=== PATIENT | male | born 1935 | race Caucasian/White ===

== ENCOUNTER 2019-06-19 17:14 | Inpatient (IN) ==
[2019-06-19] MEDS ORDERED: Aspirin 81 MG TAB.CHEW PO STA (17:57)
[2019-06-19 18:48] LABS: Troponin I 16.22 ng/mL (< 0.04)
[2019-06-19] MEDS ORDERED: *HR* Heparin 5,000 UNIT/ML VIAL IVP PRN (19:15)
[2019-06-19] MEDS ORDERED: Heparin 25,000 UNIT/250 ML D5W 25,000 UNIT/250 ML IV.SOLN IVC SCH (19:15)
[2019-06-19] MEDS ORDERED: *HR* Heparin 5,000 UNIT/ML VIAL IVP ONE (19:15)
[2019-06-19 19:24] LABS: Basophils % 0.2 %; Eosinophils % 0.1 %; Hematocrit 44.1 % (37.5-50.1); Hemoglobin 14.4 g/dL (12.9-16.9); Immature Granulocytes % 0.3 % (0-4); Lymphocytes # 1.2 K/mcL (0.6-4.6); Lymphocytes % 12.6 %; Mean Corpuscular HGB Conc 32.7 g/dL (31.6-35.5); Mean Corpuscular Hemoglobin 33.5 pg (28.0-33.3); Mean Corpuscular Volume 102.6 fL (83.0-100.0); Monocytes # 0.8 K/mcL (0.0-1.3); Monocytes % 8.6 %; Neutrophils # 7.5 K/mcL (1.6-8.9); Platelet Count 341 K/mcL (140-400); Red Cell Distribution Width 13.9 % (11.5-14.5); Segmented Neutrophils % 78.2 %; White Blood Count 9.5 K/mcL (4.3-11.1)
[2019-06-19 19:36] LABS: INR 1.2; Prothrombin Time 13.6 Seconds (9.4-12.1)
[2019-06-19 19:38] LABS: Activated Partial Thrombo Time 32.9 Seconds (26.0-36.0)
[2019-06-19 19:46] LABS: Hematocrit 43.4 % (37.5-50.1); Hemoglobin 14.4 g/dL (12.9-16.9); Mean Corpuscular HGB Conc 33.2 g/dL (31.6-35.5); Mean Corpuscular Volume 102.4 fL (83.0-100.0); Mean Platelet Volume 9.7 fL (9.4-12.4); Platelet Count 340 K/mcL (140-400); Red Blood Count 4.24 M/mcL (4.19-5.50); White Blood Count 9.1 K/mcL (4.3-11.1)
[2019-06-19 19:52] LABS: BUN/Creatinine Ratio 17 (6-26); Blood Urea Nitrogen 18 mg/dL (8-23); Calcium 9.2 mg/dL (8.6-10.3); Carbon Dioxide 20 mEq/L (23-29); Chloride 104 mEq/L (98-107); Glucose 108 mg/dL (70-105); Osmolality,Calculated 282 (280-300); Potassium 4.2 mEq/L (3.5-5.1); Sodium 135 mEq/L (136-145); eGFR For African Americans > 60 (> 60); eGFR For Non-African Americans > 60 (> 60)
[2019-06-19 19:54] LABS: INR 1.2; Prothrombin Time 13.8 Seconds (9.4-12.1)
[2019-06-19 20:05] LABS: Chol/HDL Ratio 3.6 (0-4.9)
[2019-06-19 20:16] LABS: Estimated Average Glucose 137 mg/dl
[2019-06-19 20:41] LABS: Thyroid Stimulating Hormone 1.763 mcIU/mL (0.340-5.600)
[2019-06-19] MEDS: Gabapentin 400 MG CAPSULE PO SCH (22:21)
[2019-06-20] MEDS: *HR* Heparin 5,000 UNIT/ML VIAL IVP PRN ×2 (03:47→12:44)
[2019-06-20] MEDS ORDERED: Aspirin 81 MG TAB.CHEW PO SCH (09:00)
[2019-06-20] MEDS ORDERED: Perflutren Lipid Microsphere 1.3 ML in 0.9 % Sodium Chloride 8.7 ML IVP ONE (10:37)
[2019-06-20] MEDS ORDERED: Perflutren Lipid Microsphere 2 ML VIAL ONE (10:40)
[2019-06-20] MEDS: Isosorbide MONOnitrate (24 HR) 30 MG TAB.ER.24H PO SCH (11:25)
[2019-06-20] MEDS: Cholecalciferol (D-3) 1,000 UNIT (25MCG) TABLET PO SCH (11:25)
[2019-06-20] MEDS: Gabapentin 400 MG CAPSULE PO SCH ×3 (11:25→20:32)
[2019-06-20] MEDS: Furosemide 40 MG TABLET PO SCH (11:26)
[2019-06-20] MEDS: *HR* HYDROcodone/Acet 5/325 mg TABLET PO PRN ×2 (11:26→20:35)
[2019-06-20] MEDS: Carbamide Peroxide 150 DROP/15 ML BOTTLE BOTH EARS SCH (11:29)
[2019-06-20] MEDS: Hydroxyurea 500 MG CAPSULE PO SCH (11:47)
[2019-06-20] MEDS ORDERED: ISOVUE-370 200 ML INFUS..BTL ONE (12:42)
[2019-06-20] MEDS ORDERED: Nitroglycerin 1,000 MCG/10 ML VIAL IV ONE (12:42)
[2019-06-20] MEDS ORDERED: Heparin 1,000 UNITS/500 mL 500 ML ONE (12:42)
[2019-06-20] MEDS ORDERED: 0.9 % Sodium Chloride 1,000 ML ONE (12:42)
[2019-06-20] MEDS ORDERED: *HR* Heparin 10,000 UNIT/10 ML VIAL ONE (12:42)
[2019-06-20] MEDS ORDERED: *HR* Midazolam HCl 2 MG/2 ML VIAL ONE (13:21)
[2019-06-20] MEDS ORDERED: *HR* FentaNYL (PF) 100 MCG/2 ML VIAL ONE (13:21)
[2019-06-20] MEDS: *HR* Rivaroxaban 10 MG TABLET PO SCH (17:00)
[2019-06-21 01:57] LABS: Basophils % 0.3 %; Eosinophils % 0.1 %; Hematocrit 40.7 % (37.5-50.1); Hemoglobin 13.3 g/dL (12.9-16.9); Immature Granulocytes % 0.4 % (0-4); Lymphocytes # 1.3 K/mcL (0.6-4.6); Lymphocytes % 12.9 %; Mean Corpuscular HGB Conc 32.7 g/dL (31.6-35.5); Mean Corpuscular Hemoglobin 33.8 pg (28.0-33.3); Mean Corpuscular Volume 103.6 fL (83.0-100.0); Mean Platelet Volume 10.1 fL (9.4-12.4); Monocytes # 1.1 K/mcL (0.0-1.3); Monocytes % 10.6 %; Neutrophils # 7.8 K/mcL (1.6-8.9); Platelet Count 355 K/mcL (140-400); Red Blood Count 3.93 M/mcL (4.19-5.50); Red Cell Distribution Width 14.2 % (11.5-14.5); Segmented Neutrophils % 75.7 %; White Blood Count 10.3 K/mcL (4.3-11.1)
[2019-06-21 02:08] LABS: INR 2.6; Prothrombin Time 30.1 Seconds (9.4-12.1)
[2019-06-21 02:17] LABS: Calcium 8.9 mg/dL (8.6-10.3); Potassium 4.5 mEq/L (3.5-5.1)
[2019-06-21] MEDS: Gabapentin 400 MG CAPSULE PO SCH ×3 (07:46→21:37)
[2019-06-21] MEDS: Isosorbide MONOnitrate (24 HR) 30 MG TAB.ER.24H PO SCH (07:47)
[2019-06-21] MEDS: Furosemide 40 MG TABLET PO SCH (07:47)
[2019-06-21] MEDS: Cholecalciferol (D-3) 1,000 UNIT (25MCG) TABLET PO SCH (07:47)
[2019-06-21] MEDS: Acetaminophen 325 MG TABLET PO PRN ×2 (07:52→21:43)
[2019-06-21] MEDS: Carbamide Peroxide 150 DROP/15 ML BOTTLE BOTH EARS SCH (07:56)
[2019-06-21] MEDS ORDERED: 0.9 % Sodium Chloride 1,000 ML IVC SCH (09:00)
[2019-06-21] MEDS: *HR* HYDROcodone/Acet 5/325 mg TABLET PO PRN (14:39)
[2019-06-21] MEDS: *HR* Rivaroxaban 10 MG TABLET PO SCH (16:32)
[2019-06-21] MEDS ORDERED: Furosemide 20 MG/2 ML VIAL IVP STA (17:51)
[2019-06-21] MEDS ORDERED: Acetaminophen IV 500 MG/50 ML INFUS..BTL IVPB ONE (23:33)
[2019-06-22 03:39] LABS: Hematocrit 41.3 % (37.5-50.1); Hemoglobin 13.2 g/dL (12.9-16.9); Mean Corpuscular Hemoglobin 33.8 pg (28.0-33.3); Mean Corpuscular Volume 105.6 fL (83.0-100.0); Mean Platelet Volume 10.1 fL (9.4-12.4); Platelet Count 391 K/mcL (140-400); Red Blood Count 3.91 M/mcL (4.19-5.50); Red Cell Distribution Width 14.1 % (11.5-14.5); White Blood Count 11.1 K/mcL (4.3-11.1)
[2019-06-22 03:54] LABS: Calcium 9.1 mg/dL (8.6-10.3); Potassium 4.4 mEq/L (3.5-5.1)
[2019-06-22 08:07] LABS: Basophils % 0.3 %; Eosinophils % 0.1 %; Hematocrit 41.8 % (37.5-50.1); Hemoglobin 13.4 g/dL (12.9-16.9); Immature Granulocytes % 0.5 % (0-4); Lymphocytes # 1.5 K/mcL (0.6-4.6); Lymphocytes % 13.7 %; Mean Corpuscular HGB Conc 32.1 g/dL (31.6-35.5); Mean Corpuscular Hemoglobin 33.8 pg (28.0-33.3); Mean Corpuscular Volume 105.6 fL (83.0-100.0); Monocytes # 1.3 K/mcL (0.0-1.3); Monocytes % 11.6 %; Neutrophils # 8.1 K/mcL (1.6-8.9); Platelet Count 384 K/mcL (140-400); Red Blood Count 3.96 M/mcL (4.19-5.50); Red Cell Distribution Width 14.1 % (11.5-14.5); Segmented Neutrophils % 73.8 %; White Blood Count 10.9 K/mcL (4.3-11.1)
[2019-06-22] MEDS: Isosorbide MONOnitrate (24 HR) 30 MG TAB.ER.24H PO SCH (10:18)
[2019-06-22] MEDS: Gabapentin 400 MG CAPSULE PO SCH ×3 (10:19→19:43)
[2019-06-22] MEDS: Cholecalciferol (D-3) 1,000 UNIT (25MCG) TABLET PO SCH (10:20)
[2019-06-22] MEDS: Carbamide Peroxide 150 DROP/15 ML BOTTLE BOTH EARS SCH (10:22)
[2019-06-22] MEDS: Hydroxyurea 500 MG CAPSULE PO SCH (10:33)
[2019-06-22 10:57] LABS: INR 2.2; Prothrombin Time 25.5 Seconds (9.4-12.1)
[2019-06-22 13:56] LABS: Bilirubin,Urine Small (Negative); Blood,Urine Moderate (Negative); Clarity,Urine Clear (Clear); Color,Urine Dark Yellow (Yellow); Glucose,Urine (UA) Normal (Normal); Ketones,Urine Negative (Negative); Leukocyte Esterase,Urine Negative (Negative); Nitrite,Urine Negative (Negative); PH,Urine 5.5 pH Units (5.0-8.0); Protein,Urine 30 mg/dL (Neg-Trace); Specific Gravity,Urine 1.027 (1.010-1.025); Urobilinogen,Urine Normal (Normal)
[2019-06-22 14:03] LABS: Bacteria,Urine None Seen per hpf (None-Few); Hyaline Casts,Urine None Seen per lpf (None-Few); RBC,Urine 15-30 per hpf (0-3); Squamous Epithelial Cell,Urine Moderate per lpf (None-Few); WBC,Urine 0-3 per hpf (0-3)
[2019-06-22 15:59] LABS: Protein/Creatinine Ratio,Urine 0.28 mg/mg (0.00-0.20)
[2019-06-22] MEDS: *HR* Rivaroxaban 15 MG TABLET PO SCH (16:07)
[2019-06-22] MEDS ORDERED: Ipratropium/Albuterol Neb 3 ML IH PRN (17:46)
[2019-06-22] MEDS ORDERED: Piperacillin/Tazobactam 3.375 GM in 0.9 % Sodium Chloride Mini Bag 100 ML IVPB ONE (17:58)
[2019-06-22] MEDS ORDERED: Furosemide 40 MG/4 ML VIAL IVP ONE (18:17)
[2019-06-23] MEDS: Piperacillin/Tazobactam 3.375 GM in 0.9 % Sodium Chloride Mini Bag 100 ML IVPB SCH ×4 (00:35→23:21)
[2019-06-23] MEDS: Gabapentin 400 MG CAPSULE PO SCH ×3 (10:17→21:42)
[2019-06-23] MEDS: Cholecalciferol (D-3) 1,000 UNIT (25MCG) TABLET PO SCH (10:17)
[2019-06-23] MEDS: Isosorbide MONOnitrate (24 HR) 30 MG TAB.ER.24H PO SCH (10:18)
[2019-06-23] MEDS: Carbamide Peroxide 150 DROP/15 ML BOTTLE BOTH EARS SCH (10:21)
[2019-06-23 10:55] LABS: Hematocrit 38.5 % (37.5-50.1); Hemoglobin 12.6 g/dL (12.9-16.9); Mean Corpuscular HGB Conc 32.7 g/dL (31.6-35.5); Mean Corpuscular Volume 103.8 fL (83.0-100.0); Mean Platelet Volume 9.8 fL (9.4-12.4); Platelet Count 445 K/mcL (140-400); Red Blood Count 3.71 M/mcL (4.19-5.50); Red Cell Distribution Width 13.8 % (11.5-14.5); White Blood Count 8.7 K/mcL (4.3-11.1)
[2019-06-23 11:14] LABS: Calcium 8.9 mg/dL (8.6-10.3)
[2019-06-23] MEDS: Hydroxyurea 500 MG CAPSULE PO SCH (12:03)
[2019-06-23] MEDS ORDERED: Furosemide 20 MG/2 ML VIAL IVP ONE (15:15)
[2019-06-23] MEDS: *HR* Rivaroxaban 15 MG TABLET PO SCH (18:18)
[2019-06-23] MEDS ORDERED: *HR* LORazepam 2 MG/ML VIAL IVP STA (18:40)
[2019-06-23] MEDS: Levalbuterol Neb 1.25 MG/3 ML IH SCH ×2 (18:57→21:57)
[2019-06-24] MEDS: Levalbuterol Neb 1.25 MG/3 ML IH SCH ×4 (04:27→22:09)
[2019-06-24 05:14] LABS: Basophils % 0.3 %; Eosinophils # 0.1 K/mcL (0.0-0.6); Eosinophils % 0.7 %; Hematocrit 38.7 % (37.5-50.1); Hemoglobin 12.4 g/dL (12.9-16.9); Immature Granulocytes % 0.4 % (0-4); Lymphocytes % 13.2 %; Mean Corpuscular Hemoglobin 33.1 pg (28.0-33.3); Mean Corpuscular Volume 103.2 fL (83.0-100.0); Mean Platelet Volume 9.8 fL (9.4-12.4); Monocytes # 0.7 K/mcL (0.0-1.3); Neutrophils # 5.5 K/mcL (1.6-8.9); Platelet Count 469 K/mcL (140-400); Red Blood Count 3.75 M/mcL (4.19-5.50); Red Cell Distribution Width 13.7 % (11.5-14.5); Segmented Neutrophils % 76.4 %; White Blood Count 7.2 K/mcL (4.3-11.1)
[2019-06-24 05:19] LABS: Albumin 3.2 g/dL (3.5-5.7); BUN/Creatinine Ratio 28 (6-26); Blood Urea Nitrogen 39 mg/dL (8-23); Carbon Dioxide 28 mEq/L (23-29); Chloride 102 mEq/L (98-107); Glucose 122 mg/dL (70-105); Osmolality,Calculated 295 (280-300); Phosphorous 3.5 mg/dL (2.7-4.5); Potassium 4.4 mEq/L (3.5-5.1); Potassium 4.5 mEq/L (3.5-5.1); Sodium 137 mEq/L (136-145); eGFR For African Americans > 60 (> 60); eGFR For Non-African Americans 50 (> 60)
[2019-06-24] MEDS ORDERED: Furosemide 20 MG/2 ML VIAL IVP ONE (08:19)
[2019-06-24] MEDS: Cholecalciferol (D-3) 1,000 UNIT (25MCG) TABLET PO SCH (10:05)
[2019-06-24] MEDS: Isosorbide MONOnitrate (24 HR) 30 MG TAB.ER.24H PO SCH (10:05)
[2019-06-24] MEDS: Gabapentin 400 MG CAPSULE PO SCH ×3 (10:05→21:41)
[2019-06-24] MEDS: Piperacillin/Tazobactam 3.375 GM in 0.9 % Sodium Chloride Mini Bag 100 ML IVPB SCH (10:06)
[2019-06-24] MEDS: *HR* HYDROcodone/Acet 5/325 mg TABLET PO PRN (10:06)
[2019-06-24] MEDS: Carbamide Peroxide 150 DROP/15 ML BOTTLE BOTH EARS SCH (10:07)
[2019-06-24] MEDS: *HR* Rivaroxaban 15 MG TABLET PO SCH (18:21)
[2019-06-24] MEDS: *HR* LORazepam 0.5 MG TABLET PO PRN (18:39)
[2019-06-25 01:43] LABS: Basophils % 0.2 %; Eosinophils # 0.2 K/mcL (0.0-0.6); Hemoglobin 12.3 g/dL (12.9-16.9); Immature Granulocytes % 0.2 % (0-4); Lymphocytes # 1.1 K/mcL (0.6-4.6); Lymphocytes % 13.3 %; Mean Corpuscular HGB Conc 31.5 g/dL (31.6-35.5); Mean Corpuscular Hemoglobin 32.6 pg (28.0-33.3); Mean Corpuscular Volume 103.4 fL (83.0-100.0); Mean Platelet Volume 9.7 fL (9.4-12.4); Monocytes # 0.6 K/mcL (0.0-1.3); Monocytes % 7.8 %; Neutrophils # 6.1 K/mcL (1.6-8.9); Platelet Count 518 K/mcL (140-400); Red Blood Count 3.77 M/mcL (4.19-5.50); Red Cell Distribution Width 13.8 % (11.5-14.5); Segmented Neutrophils % 76.5 %
[2019-06-25 02:02] LABS: BUN/Creatinine Ratio 26 (6-26); Blood Urea Nitrogen 34 mg/dL (8-23); Calcium 8.9 mg/dL (8.6-10.3); Carbon Dioxide 27 mEq/L (23-29); Chloride 99 mEq/L (98-107); Glucose 142 mg/dL (70-105); Osmolality,Calculated 294 (280-300); Potassium 4.4 mEq/L (3.5-5.1); Sodium 137 mEq/L (136-145); eGFR For African Americans > 60 (> 60); eGFR For Non-African Americans 53 (> 60)
[2019-06-25] MEDS: Levalbuterol Neb 1.25 MG/3 ML IH SCH ×4 (04:40→22:45)
[2019-06-25] MEDS: Isosorbide MONOnitrate (24 HR) 30 MG TAB.ER.24H PO SCH (08:30)
[2019-06-25] MEDS: Cholecalciferol (D-3) 1,000 UNIT (25MCG) TABLET PO SCH (08:30)
[2019-06-25] MEDS: Gabapentin 400 MG CAPSULE PO SCH ×3 (08:30→20:49)
[2019-06-25] MEDS: Carbamide Peroxide 150 DROP/15 ML BOTTLE BOTH EARS SCH (08:31)
[2019-06-25] MEDS: Furosemide 20 MG/2 ML VIAL IVP SCH (08:31)
[2019-06-25] MEDS: Hydroxyurea 500 MG CAPSULE PO SCH (08:31)
[2019-06-25] MEDS: *HR* Rivaroxaban 15 MG TABLET PO SCH (16:18)
[2019-06-25] MEDS: *HR* LORazepam 0.5 MG TABLET PO PRN (20:49)
[2019-06-26] MEDS: Levalbuterol Neb 1.25 MG/3 ML IH SCH ×4 (03:47→22:28)
[2019-06-26 04:50] LABS: Basophils % 0.5 %; Eosinophils # 0.2 K/mcL (0.0-0.6); Eosinophils % 2.1 %; Hematocrit 39.4 % (37.5-50.1); Hemoglobin 12.7 g/dL (12.9-16.9); Immature Granulocytes % 0.4 % (0-4); Lymphocytes # 1.4 K/mcL (0.6-4.6); Lymphocytes % 16.5 %; Mean Corpuscular HGB Conc 32.2 g/dL (31.6-35.5); Mean Corpuscular Hemoglobin 33.7 pg (28.0-33.3); Mean Corpuscular Volume 104.5 fL (83.0-100.0); Mean Platelet Volume 9.5 fL (9.4-12.4); Monocytes # 0.7 K/mcL (0.0-1.3); Neutrophils # 5.9 K/mcL (1.6-8.9); Platelet Count 566 K/mcL (140-400); Red Blood Count 3.77 M/mcL (4.19-5.50); Red Cell Distribution Width 13.8 % (11.5-14.5); Segmented Neutrophils % 71.5 %; White Blood Count 8.2 K/mcL (4.3-11.1)
[2019-06-26 05:04] LABS: BUN/Creatinine Ratio 27 (6-26); Blood Urea Nitrogen 30 mg/dL (8-23); Carbon Dioxide 28 mEq/L (23-29); Chloride 98 mEq/L (98-107); Glucose 117 mg/dL (70-105); Osmolality,Calculated 285 (280-300); Potassium 4.6 mEq/L (3.5-5.1); Sodium 134 mEq/L (136-145); eGFR For African Americans > 60 (> 60); eGFR For Non-African Americans > 60 (> 60)
[2019-06-26] MEDS: *HR* HYDROcodone/Acet 5/325 mg TABLET PO PRN (10:41)
[2019-06-26] MEDS: Cholecalciferol (D-3) 1,000 UNIT (25MCG) TABLET PO SCH (10:41)
[2019-06-26] MEDS: Carbamide Peroxide 150 DROP/15 ML BOTTLE BOTH EARS SCH (10:41)
[2019-06-26] MEDS: Isosorbide MONOnitrate (24 HR) 30 MG TAB.ER.24H PO SCH (10:42)
[2019-06-26] MEDS: Furosemide 20 MG/2 ML VIAL IVP SCH (10:42)
[2019-06-26] MEDS: Gabapentin 400 MG CAPSULE PO SCH ×3 (10:42→20:56)
[2019-06-26] MEDS: *HR* LORazepam 0.5 MG TABLET PO PRN ×2 (10:42→20:56)
[2019-06-26] MEDS: *HR* Rivaroxaban 15 MG TABLET PO SCH (20:57)
[2019-06-27] MEDS: Levalbuterol Neb 1.25 MG/3 ML IH SCH ×2 (03:40→10:41)
[2019-06-27 04:32] LABS: Basophils % 0.2 %; Eosinophils # 0.2 K/mcL (0.0-0.6); Eosinophils % 1.7 %; Hematocrit 40.5 % (37.5-50.1); Hemoglobin 12.9 g/dL (12.9-16.9); Immature Granulocytes % 0.6 % (0-4); Lymphocytes % 11.3 %; Mean Corpuscular HGB Conc 31.9 g/dL (31.6-35.5); Mean Corpuscular Hemoglobin 33.2 pg (28.0-33.3); Mean Corpuscular Volume 104.4 fL (83.0-100.0); Mean Platelet Volume 9.1 fL (9.4-12.4); Monocytes # 0.8 K/mcL (0.0-1.3); Monocytes % 8.1 %; Neutrophils # 7.2 K/mcL (1.6-8.9); Platelet Count 562 K/mcL (140-400); Red Blood Count 3.88 M/mcL (4.19-5.50); Red Cell Distribution Width 13.7 % (11.5-14.5); Segmented Neutrophils % 78.1 %; White Blood Count 9.2 K/mcL (4.3-11.1)
[2019-06-27 04:50] LABS: Calcium 9.2 mg/dL (8.6-10.3); Potassium 4.8 mEq/L (3.5-5.1)
[2019-06-27 07:30] VITALS: BP 118/89
[2019-06-27] MEDS: Gabapentin 400 MG CAPSULE PO SCH (08:46)
[2019-06-27] MEDS: Cholecalciferol (D-3) 1,000 UNIT (25MCG) TABLET PO SCH (08:46)
[2019-06-27] MEDS: Acetaminophen 325 MG TABLET PO PRN (08:46)
[2019-06-27] MEDS: Isosorbide MONOnitrate (24 HR) 30 MG TAB.ER.24H PO SCH (08:47)
[2019-06-27] MEDS: Hydroxyurea 500 MG CAPSULE PO SCH (08:50)
[2019-06-27] MEDS: Carbamide Peroxide 150 DROP/15 ML BOTTLE BOTH EARS SCH (08:51)
== END 2019-06-27 14:56 | disposition home health service (06) | DRG 280 ==
LOC: EMEROOARM 17:14 → SUATTDRO 21:02 → 2NENU 21:02
PROVIDERS: ADMIT Internal Medicine; ATTEND Internal Medicine